=== PATIENT | male | born 2000 | race Caucasian/White ===

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

== ENCOUNTER → 2020-08-09 | Outpatient (CLI) | payer SELFPAY | LOC: M LABSMTC 12:08 | PROVIDERS: ATTEND Pediatrics | DX: Z20.822 Contact with and (suspected) exposure to COVID-19 (principal) ==

== ENCOUNTER 2020-11-18 10:32 | Emergency (ER) | payer OTHER, SELFPAY ==
[~2020-11-18] VITALS: Ht 172.7 cm; Wt 110.4 kg
--- NOTE | 2020-11-18 11:44 | REP ---
INDICATION: cp. COMPARISON: Comparison chest x-ray September 15, 2012. TECHNIQUE: Two views.. FINDINGS: The lungs are well inflated and free of infiltrate. The pleural angles are sharp. The heart size is normal. Pulmonary vasculature is not increased. No significant bony abnormality is seen. IMPRESSION: Negative chest x-ray. <Electronically signed by Donnell Whalen > 11/18/20 [id number]
[2020-11-18 13:59] LABS: BASO # 0.1 10^3/uL (0.0-0.2); BASO % 0.6 % (0.0-1.0); EOS # 0.1 10^3/uL (0.0-0.5); EOS % 1.1 % (0.0-3.0); HEMATOCRIT 43.5 % (42.0-52.0); HEMOGLOBIN 14.9 g/dl (13.5-17.5); LYMPH # 3.4 10^3/uL (1.5-5.0); LYMPH % 41.4 % (24.0-44.0); MEAN CORPUSCULAR HEMOGLOBIN 30.5 pg (27.0-33.0); MEAN CORPUSCULAR HGB CONC 34.3 g/dl (32.0-36.5); MONO # 0.6 10^3/uL (0.0-0.8); MONO % 7.2 % (2.0-8.0); NEUTROPHILS # 4.1 10^3/uL (1.5-8.5); NEUTROPHILS % 49.3 % (36.0-66.0); PLATELET COUNT, AUTOMATED 287 10^3/uL (150-450); RED BLOOD COUNT 4.89 10^6/uL (4.30-6.10); WHITE BLOOD COUNT 8.3 10^3/uL (4.0-10.0)
[2020-11-18 14:25] LABS: BLOOD UREA NITROGEN 12 MG/DL (7-18); CALCIUM LEVEL 10.7 MG/DL (8.5-10.1); CARBON DIOXIDE LEVEL 25 MEQ/L (21-32); CHLORIDE LEVEL 108 MEQ/L (98-107); CK-MB VALUE MASS 1.1 NG/ML (<3.6); CPK CREATINE PHOSPHOKINASE 196 U/L (39-308); CREATININE FOR GFR 0.78 MG/DL (0.70-1.30); FREE T4 1.04 NG/DL (0.78-1.33); GLUCOSE, FASTING 83 MG/DL (70-100); MAGNESIUM LEVEL 2.2 MG/DL (1.8-2.4); MB/CK RELATIVE INDEX 0.56 (< OR =4); POTASSIUM SERUM 4.3 MEQ/L (3.5-5.1); SODIUM LEVEL 138 MEQ/L (136-145); TROPONIN I < 0.02 NG/ML (< 0.10)
[2020-11-18 15:13] VITALS: BP 162/87
--- NOTE | 2020-11-18 18:55 | ECGEPIP ---
[facility] - ED Test Date: 2020-11-18 Pat Name: MARY ROCA Department: Room: - Gender: Male [employer]: JESSIE : 2000 Requested By: Karen Alves Order Number: [id number] Reading MD: Roel Bolanos Measurements Intervals [place] Rate: 57 P: 17 [place]: 152 QRS: -12 QRSD: 104 T: -8 QT: 450 QTc: 438 Interpretive Statements Sinus bradycardia with marked sinus arrhythmia Minimal voltage criteria for LVH, may be normal variant ( R in aVL ) NSTTW ABNORMALITY(S) NO PRIORS FOR COMPARISON Electronically Signed on 11-18-2020 18:55:40 EDT by Roel Bolanos
== END 2020-11-18 15:15 | disposition home or self-care (01) ==
LOC: M ED 10:32
DX: R07.9 Chest pain, unspecified (principal); F41.9 Anxiety disorder, unspecified; R00.1 Bradycardia, unspecified; Z87.891 Personal history of nicotine dependence

== ENCOUNTER 2021-11-02 14:51 | Emergency (ER) | payer SELFPAY ==
[~2021-11-02] VITALS: Ht 177.8 cm; Wt 81.8 kg
[2021-11-02 14:52] VITALS: BP 134/87
[2021-11-02] MEDS ORDERED: BOOSTRIX/ADACEL VACCINE (DIPHTH/PERTUSS/ACELL/TETANUS) 0.5ML SYR IM ONE (17:55)
[2021-11-02] MEDS ORDERED: BACITRACIN OINTMENT 30GM TUBE TOP ONE (17:55)
== END 2021-11-02 18:48 | disposition home or self-care (01) ==
LOC: M ED 14:51
DX: S80.871A Other superficial bite, right lower leg, initial encounter (principal); W54.0XXA Bitten by dog, initial encounter; Y92.488 Other paved roadways as the place of occurrence of the external cause; Y99.0 Civilian activity done for income or pay

== ENCOUNTER → 2022-06-19 | Outpatient (CLI) | payer OTHER | LOC: M OUTALCOH 07:54 | PROVIDERS: ATTEND Psychiatry & Neurology Psychiatry | DX: Z13.30 Encounter for screening examination for mental health and behavioral disorders, unspecified (principal) ==

== ENCOUNTER 2022-07-12 14:50 | Outpatient (RCR) | payer OTHER | END 2022-07-14 | LOC: M OUTALCOH 14:50 | PROVIDERS: ATTEND Psychiatry & Neurology Psychiatry | DX: F10.10 Alcohol abuse, uncomplicated (principal); Z72.0 Tobacco use ==

== ENCOUNTER 2022-08-09 10:00 | Outpatient (RCR) | payer OTHER | END 2022-08-14 | LOC: M OUTALCOH 10:00 | PROVIDERS: ATTEND Psychiatry & Neurology Psychiatry | DX: F10.10 Alcohol abuse, uncomplicated (principal); Z72.0 Tobacco use ==